=== PATIENT | male | born 1980 | race Caucasian/White ===

== ENCOUNTER 2016-12-11 21:37 | Emergency (ER) | payer BC ==
[2016-12-11] MEDS ORDERED: Hydromorphone 1 mg/ml Ampule IV ONE (22:12)
[2016-12-11] MEDS ORDERED: Phenergan 25 MG INJ IV ONE (22:12)
[2016-12-11] MEDS ORDERED: Sodium Chloride 0.9% 1000 ML 1,000 ML IV STA (22:12)
[2016-12-11] MEDS ORDERED: Phenergan 25 MG INJ ONE (22:22)
[2016-12-11] MEDS ORDERED: Hydromorphone 1 mg/ml Ampule ONE (22:23)
[2016-12-11] MEDS ORDERED: Sodium Chloride 0.9% 1000 ML 1,000 ML ONE (22:23)
--- NOTE | 2016-12-11 22:27 | ERPHSYRPT ---
- History of Present Illness Time Seen by Provider: 12/11/16 22:01 Historian: patient Exam Limitations: no limitations Patient Subjective Stated Complaint: PER PATIENT C/O ABD DISTENTION AND INTERMITENT FEVERS FOR THE LAST FEW DAYS, 30+ DAYS OUT FROM GALLBLADDER SURG FROM [facility], [place], HAS 2 ABD DRAINS STATES DECREASED OUTPUT FOR THE LAST FEW DAYS, BAG ONE SCANT DARK REDTINGED DRAINIAGE AND 350ML DRAINAGE FROM OTHER SITE SAME COLOR DRAINAGE, LARGE BAG LAST DRAINED AT 1700 Triage Nursing Assessment: PATIENT AOX3, VSS, NO FEVER NOTED AT THIS TIME, PMS INTACT ABLE TO ANSWER ALL QUESTIONS Physician History: PT C/O ACHY BURNING 7/10 ABDOMINAL PAIN FOR THE PAST 3 DAYS WITH FEVER UP TO 102 DEGREES. LAST BM WAS TODAY AND SMALL. PT STATES HE HAD A CHOLECYSTECTOMY AT [facility] [place] BY DR DALY ON 11/09/16, WAS SENT HOME AND RETURNED 1 WEEK AFTER SURGERY BECAUSE OF A DISTENDED ABDOMEN, FEVER, CHILLS AND DIAPHORESIS. AFTER 2 DAYS PT WAS TRANSFERRED TO [facility] WHERE HE STAYED FOR 1 WEEK AND THEN WAS TRANSFERRED TO [facility] IN [facility] IN, UNDER THE CARE OF DR GUERIN WHERE HE RECEIVED DRAINS AND A PEG TUBE. PT STATES HE WAS GIVEN ZOSYN AND VANCOMYCIN FOR A TOTAL OF 3 WEEKS WITH NO ANTIBIOTICS IN THE PAST WEEK. PT ALSO C/O AN INGUINAL RASH FOR THE PAST WEEK AND EARACHES FOR THE PAST 2 DAYS. Hx Tetanus, Diphtheria Vaccination/Date Given: Yes - Review of Systems Constitutional: Fever, Chills Ears, Nose, & Throat: Ear Pain Respiratory: No Dyspnea Cardiac: No Chest Pain Abdominal/Gastrointestinal: Abdominal Pain Skin: Rash Endocrine: Excessive Sweating All Other Systems: Reviewed and Negative - Past Medical History Pertinent Past Medical History: Yes Neurological History: Peripheral Neuropathy ENT History: No Pertinent History Cardiac History: No Pertinent History Respiratory History: No Pertinent History Endocrine Medical History: Hypothyroidism Musculoskeletal History: No Pertinent History GI Medical History: Diverticulitis, Gallbladder Disease History: No Pertinent History Psycho-Social History: No Pertinent History Male Reproductive Disorders: No Pertinent History - Past Surgical History Past Surgical History: Yes Neuro Surgical History: No Pertinent History Cardiac: No Pertinent History Respiratory: No Pertinent History Gastrointestinal: Bowel Surgery, Cholecystectomy, Other Genitourinary: No Pertinent History Musculoskeletal: No Pertinent History Male Surgical History: No Pertinent History - Social History Smoking Status: Former smoker Drug Use: none Patient Lives Alone: No () - Nursing Vital Signs Nursing Vital Signs: Initial Vital Signs Temperature 98.7 F Temperature Source Oral Pulse Rate 88 Respiratory Rate 16 Blood Pressure [] 122/71 Pain Intensity 6 - Physical Exam General Appearance: alert Eye Exam: PERRL/EOMI Ears, Nose, Throat Exam: TMs normal, pharynx normal, moist mucous membranes Neck Exam: normal inspection Respiratory Exam: lungs clear Cardiovascular Exam: normal heart sounds Gastrointestinal/Abdomen Exam: other (B.S. MILDLY HYPERACTIVE AND NORMOTONIC; 2 DRAINS IN RIGHT SIDE AND PEG TUBE IN LUQ. NO ERYTHEMA NOTED. MODERATE DIFFUSE ABDOMINAL TENDERNESS.) Back Exam: normal range of motion Extremity Exam: normal inspection, No pedal edema Neurologic Exam: alert, cooperative Skin Exam: rash (MILD LEFT > RIGHT FAINTLY ERYTHEMATOUS INGUINAL RASH ) SpO2 Interpretation: normal SpO2: 98 Oxygen Delivery: Room Air - Course Nursing assessment & vital signs reviewed: Yes - CT Exams Abdomen/Pelvis CT Interpretation: Tele-radiologist Report (2 PIGTAIL CATHETERS IN THE RIGHT QUADRANT, ONE IN THE MID RIGHT LOBE LIVER AND THE OTHER 4 ADJACENT TO THE RIGHT LOBE OF THE LIVER AT THE LEVEL OF THE FOSSA. MODERATELY LARGE AMOUNT OF FREE FLUID. DIVERTICULOSIS.) Ordered Tests: Active Orders 24 hr Category Date Time Status Clean Catch Urine Specimen STAT Care 12/11/16 22:12 Active IV Insertion STAT Care 12/11/16 22:12 Active ABDOMEN AND PELVIS W/0 CONTRAS [CT] Stat Exams 12/11/16 22:13 Taken AMYLASE Stat Lab 12/11/16 22:30 Completed BLOOD CULTURE Stat Lab 12/11/16 22:41 Received CBC W DIFF Stat Lab 12/11/16 22:30 Completed CMP Stat Lab 12/11/16 22:30 Completed CULTURE,URINE Stat Lab 12/11/16 22:45 Ordered LIPASE Stat Lab 12/11/16 22:30 Completed Lactic Acid Stat Lab 12/11/16 22:29 Completed MAGNESIUM Stat Lab 12/11/16 22:30 Completed UA W/ MICROSCOPIC Stat Lab 12/11/16 22:30 Completed Medication Summary Discontinued Medications Generic Name Dose Route Start Last Admin Trade Name Freq PRN Reason Stop Dose Admin Hydromorphone HCl 1 mg 12/11/16 22:12 12/11/16 22:28 Hydromorphone 1 Mg/Ml Ampule IV 12/11/16 22:13 1 mg STAT ONE Administration Hydromorphone HCl Confirm 12/11/16 22:23 Hydromorphone 1 Mg/Ml Ampule Administered 12/11/16 22:24 Dose 1 mg .ROUTE .STK-MED ONE Sodium Chloride 1,000 mls @ 999 mls/hr 12/11/16 22:12 12/11/16 22:29 Sodium Chloride 0.9% 1000 Ml IV 12/11/16 23:12 999 mls/hr .Q1H1M STA Administration Sodium Chloride Confirm 12/11/16 22:23 Sodium Chloride 0.9% 1000 Ml Administered 12/11/16 22:24 Dose 1,000 mls @ ud .ROUTE .STK-MED ONE Magnesium Sulfate/Dextrose 100 mls @ 200 mls/hr 12/11/16 23:15 12/12/16 00:39 Magnesium 1 Gm / 100 Ml D5w IV 12/11/16 23:44 200 mls/hr STAT ONE Administration Ceftriaxone Sodium/Dextrose 1 g in 50 mls @ 100 mls/hr 12/11/16 23:46 Rocephin 1 Gm-D5w 50 Ml Bag IV 12/12/16 00:15 STAT STA Magnesium Sulfate/Dextrose Confirm 12/12/16 00:34 Magnesium 1 Gm / 100 Ml D5w Administered 12/12/16 00:35 Dose 100 mls @ ud IV .STK-MED ONE Promethazine HCl 12.5 mg 12/11/16 22:12 12/11/16 22:28 Phenergan 25 Mg Inj IV 12/11/16 22:13 25 mg STAT ONE Administration Promethazine HCl Confirm 12/11/16 22:22 Phenergan 25 Mg Inj Administered 12/11/16 22:23 Dose 25 mg .ROUTE .STK-MED ONE Lab/Rad Data: Laboratory Result Diagrams 12/11/16 22:30 12/11/16 22:30 Laboratory Results 12/11/16 12/11/16 12/11/16 Range/Units 22:30 22:30 22:30 WBC 10.1 (4.0-10.5) K/mm3 RBC 3.51 L (4.1-5.6) M/mm3 Hgb 10.1 L (12.5-18.0) gm/dl Hct 31.7 L (42-50) % MCV 90.3 (78-100) fl MCH 28.7 (26-32) pg MCHC 31.9 L (32-36) g/dl RDW 14.1 H (11.5-14.0) % Plt Count 345 (150-450) K/mm3 MPV 9.0 (6-9.5) fl Gran % 81.3 H (36.0-66.0) % Lymphocytes % 8.0 L (24.0-44.0) % Monocytes % 7.2 (0.0-12.0) % Eosinophils % 3.3 (0.00-5.0) % Basophils % 0.2 (0.0-0.4) % Basophils # 0.02 (0-0.4) Sodium 137 (136-145) mEq/L Potassium 3.5 (3.5-5.1) mEq/L Chloride 99 (98-107) mEq/L Carbon Dioxide 26.9 (21-32) mEq/L Anion Gap 14.5 (5-15) MEQ/L BUN 10 (9-20) mg/dL Creatinine 0.87 (0.55-1.30) mg/dl Estimated GFR > 60 ML/MIN Glucose 104 (70-110) MG/DL Lactic Acid (0.4-2.0) Calcium 8.6 (8.5-10.1) mg/dL Magnesium 1.7 L (1.8-2.4) mg/dL Total Bilirubin 1.00 (0.2-1.0) mg/dL AST 29 (15-37) U/L ALT 68 (12-78) U/L Alkaline Phosphatase 118 H (46-116) U/L Serum Total Protein 7.3 (6.4-8.2) gm/dL Albumin 2.7 L (3.4-5.0) g/dL Amylase 141 H (25-115) U/L Lipase 667 H (73-393) U/L Ur Collection Type VOID Urine Color YELLOW (YELLOW) Urine Appearance CLEAR (CLEAR) Urine pH 6.0 (5-6) Ur Specific [place] 1.015 (1.005-1.025) Urine Protein TRACE (Negative) Urine Ketones NEGATIVE (NEGATIVE) Urine Blood 5-10 (0-5) Ayo/ul Urine Nitrite NEGATIVE (NEGATIVE) Urine Bilirubin NEGATIVE (NEGATIVE) Urine Urobilinogen NORMAL (0-1) mg/dL Ur Leukocyte Esterase NEGATIVE (NEGATIVE) Urine Microscopic RBC 2-5 (0-2) /HPF Urine Microscopic WBC 5-10 (0-5) /HPF Ur Epithelial Cells FEW (FEW) /HPF Urine Bacteria MODERATE (NEGATIVE) /HPF Urine Mucus MODERATE (NEGATIVE) /HPF Urine Glucose NEGATIVE (NEGATIVE) mg/dL Specimen Received 12/11/16 2230 12/11/16 Range/Units 22:29 WBC (4.0-10.5) K/mm3 RBC (4.1-5.6) M/mm3 Hgb (12.5-18.0) gm/dl Hct (42-50) % MCV (78-100) fl MCH (26-32) pg MCHC (32-36) g/dl RDW (11.5-14.0) % Plt Count (150-450) K/mm3 MPV (6-9.5) fl Gran % (36.0-66.0) % Lymphocytes % (24.0-44.0) % Monocytes % (0.0-12.0) % Eosinophils % (0.00-5.0) % Basophils % (0.0-0.4) % Basophils # (0-0.4) Sodium (136-145) mEq/L Potassium (3.5-5.1) mEq/L Chloride (98-107) mEq/L Carbon Dioxide (21-32) mEq/L Anion Gap (5-15) MEQ/L BUN (9-20) mg/dL Creatinine (0.55-1.30) mg/dl Estimated GFR ML/MIN Glucose (70-110) MG/DL Lactic Acid 0.7 (0.4-2.0) Calcium (8.5-10.1) mg/dL Magnesium (1.8-2.4) mg/dL Total Bilirubin (0.2-1.0) mg/dL AST (15-37) U/L ALT (12-78) U/L Alkaline Phosphatase (46-116) U/L Serum Total Protein (6.4-8.2) gm/dL Albumin (3.4-5.0) g/dL Amylase (25-115) U/L Lipase (73-393) U/L Ur Collection Type Urine Color (YELLOW) Urine Appearance (CLEAR) Urine pH (5-6) Ur Specific [place] (1.005-1.025) Urine Protein (Negative) Urine Ketones (NEGATIVE) Urine Blood (0-5) Ayo/ul Urine Nitrite (NEGATIVE) Urine Bilirubin (NEGATIVE) Urine Urobilinogen (0-1) mg/dL Ur Leukocyte Esterase (NEGATIVE) Urine Microscopic RBC (0-2) /HPF Urine Microscopic WBC (0-5) /HPF Ur Epithelial Cells (FEW) /HPF Urine Bacteria (NEGATIVE) /HPF Urine Mucus (NEGATIVE) /HPF Urine Glucose (NEGATIVE) mg/dL Specimen Received - Progress Discussed with Dr.: Other (SPOKE WITH DR GUERIN([id number]) WHO ACCEPTED PT FOR TRANSFER TO [facility] A DIRECT ADMISSSION.) - Departure Time of Disposition: 01:07 Departure Disposition: Transfer ([facility]) Clinical Impression: ABDOMINAL PAIN, UTI, MILD HYPOKALEMIA, PANCREATITIS, PN, HYPOTHYROIDISM Condition: Stable Critical Care Time: No Referrals: LETA FIGUEROA NP [Primary Care Provider] -
[2016-12-11 22:44] LABS: BASOPHIL % 0.2 % (0.0-0.4); Eosinophil % 3.3 % (0.00-5.0); Granulocytes % 81.3 % (36.0-66.0); Mean Cell Volume 90.3 fl (78-100); Monocytes % 7.2 % (0.0-12.0); Platelet Count 345 K/mm3 (150-450); Red Blood Count 3.51 M/mm3 (4.1-5.6); Red Cell Distribution Width 14.1 % (11.5-14.0); White Blood Count 10.1 K/mm3 (4.0-10.5)
[2016-12-11 22:48] LABS: Mean Corpuscular Hemoglobin 28.7 pg (26-32)
[2016-12-11 23:05] LABS: ALBUMIN 2.7 g/dL (3.4-5.0); ALKALINE PHOSPHATASE 118 U/L (46-116); ANION GAP 14.5 MEQ/L (5-15); BLOOD UREA NITROGEN 10 mg/dL (9-20); CHLORIDE 99 mEq/L (98-107); Carbon Dioxide 26.9 mEq/L (21-32); Glucose 104 MG/DL (70-110); LIPASE 667 U/L (73-393); MAGNESIUM 1.7 mg/dL (1.8-2.4); Potassium 3.5 mEq/L (3.5-5.1); SGOT/AST 29 U/L (15-37); SGPT/ALT 68 U/L (12-78); SODIUM 137 mEq/L (136-145); Total Protein 7.3 gm/dL (6.4-8.2)
[2016-12-11] MEDS ORDERED: Magnesium 1 Gm / 100 Ml D5W*** 100 ML IV ONE (23:15)
[2016-12-11 23:18] LABS: Collection Type VOID
[2016-12-11 23:19] LABS: Bacteria MODERATE /HPF (NEGATIVE); Bilirubin NEGATIVE (NEGATIVE); COMPLETE URINE MICROSCOPIC? YES; Epithelial Cells FEW /HPF (FEW); Glucose NEGATIVE (NEGATIVE); Leukocyte Esterase NEGATIVE (NEGATIVE); Mucus MODERATE /HPF (NEGATIVE)
[2016-12-11] MEDS ORDERED: ROCEPHIN 1 Gm-D5w 50 ml Bag** 1 G/50 ML IVPB IV STA (23:46)
[2016-12-12] MEDS ORDERED: Magnesium 1 Gm / 100 Ml D5W*** 100 ML IV ONE (00:34)
[2016-12-12] MEDS ORDERED: ROCEPHIN 1 Gm-D5w 50 ml Bag** 1 G/50 ML IVPB IV ONE (02:40)
[2016-12-12] MEDS ORDERED: Hydromorphone 1 mg/ml Ampule IV ONE (02:44)
[2016-12-12] MEDS ORDERED: Hydromorphone 1 mg/ml Ampule ONE (02:49)
[2016-12-12 06:58] VITALS: BP 105/61; PULSE 74; O2SAT 97
--- NOTE | 2016-12-12 08:08 | XRAY ---
Indication: Abdominal pain, distention, and nausea. Patient reports drainage tubing present due to complications from gallbladder surgery. Multiple contiguous axial images obtained through the abdomen and pelvis without contrast as ordered. Comparison: None Lung bases demonstrates bibasilar dependent atelectasis, right greater than left. Heart is not enlarged. There has been cholecystectomy with fluid collection in the gallbladder fossa measuring at least 3.0 x 7.0 cm in axial dimension. Small perisplenic fluid. Larger free fluid seen along the colic gutters bilaterally and in the pelvis. Right-sided pigtail percutaneous drainage catheter just lateral to the liver. There is also a second percutaneous biliary drainage catheter exiting right mid axillary line with a few tiny air bubbles adjacent to the pigtail. PEG tube also present with the balloon tip in the gastric lumen. Noncontrasted bowel loops appear nonobstructed. Scattered colonic diverticulosis throughout. Remaining liver, pancreas, spleen, degenerative glands, kidneys, ureters, bladder, and aorta appear unremarkable for noncontrast exam. Osseous structures intact. Impression: 1. Abdominal and pelvic free fluid. 2. 2 right upper quadrant percutaneous pigtail drainage catheters and PEG tube in situ. 3. Diverticulosis. Comment: Preliminary interpretation was made by [facility]. No discrepancy. CTDI 21.24
== END 2016-12-12 07:20 | disposition short-term general hospital (02) ==
LOC: ED 21:37
DX: R10.9 Unspecified abdominal pain (principal); N39.0 Urinary tract infection, site not specified; E87.6 Hypokalemia; K85.90 Acute pancreatitis without necrosis or infection, unspecified; J18.9 Pneumonia, unspecified organism; E03.9 Hypothyroidism, unspecified; R50.9 Fever, unspecified; Z98.890 Other specified postprocedural states
CPT/HCPCS: 36000; 36415; 74176; 80053; 81000; 82150; 83605; 83690; 83735; 85025; 87040; 87086; 96360; 96361; 96365; 96367; 96374; 96375; 99285; J0696; J1170; J2550; J3475

== ENCOUNTER 2017-02-15 18:11 | Emergency (ER) | payer BC, MEDICARE ==
[2017-02-15] MEDS ORDERED: Hydromorphone 1 mg/ml Ampule IV ONE ×2 (18:31→19:20)
--- NOTE | 2017-02-15 18:39 | ERPHSYRPT ---
- History of Present Illness Source: patient, family (father) Timing/Duration: day(s) (few) Severity: severe Hx Tetanus, Diphtheria Vaccination/Date Given: Yes <CAITLIN RUDOLPH - Last Filed: 02/15/17 18:33> <CAITLIN PAL - Last Filed: 02/15/17 23:26> - History of Present Illness Time Seen by Provider: 02/15/17 18:14 Physician History: CC: abd pain, fever Hx: 37 y/o healthy male patient had cholecystectomy at [facility] in October. He had subsequent bile duct and sepsis problems. Has been admitted at [facility] several times for drains and further procedures. He reports worsened abdominal pain, fevers, chills for the past few days. Spoke to surgeon and was told to go to ER to get labs and evaluation. He has some headache, abd pain, drang from around the drains, trouble starting urinary stream. Pain is moderately severe. (CAITLIN RUDOLPH) Allergies/Adverse Reactions: No Known Drug Allergies Allergy (Unverified 02/15/17 18:35) Home Medications: Dronabinol 5 mg PO UD 02/15/17 [History] Ferrous Sulfate 325 mg [Feosol 325 mg] 325 mg PO UD 02/15/17 [History] Levothyroxine Sodium [Synthroid] 175 mcg PO DAILY 02/15/17 [History] Lidocaine HCl 5% Patch [Lidoderm Patch 5%] 1 patch TOP UD 02/15/17 [ History] Ondansetron [Zofran Odt] 4 mg PO UD 02/15/17 [History] Oxycodone HCl 5 mg PO UD 02/15/17 [History] Promethazine HCl 12.5 mg PO UD 02/15/17 [History] - Review of Systems Constitutional: Fever, Chills, Fatigue, Malaise, Weakness Eyes: No Symptoms Ears, Nose, & Throat: No Symptoms Respiratory: No Cough, No Dyspnea Cardiac: No Chest Pain Abdominal/Gastrointestinal: Abdominal Pain, Nausea, No Vomiting, No Diarrhea Genitourinary Symptoms: Hesitancy, No Dysuria, No Testicle Pain Musculoskeletal: No Back Pain Skin: No Rash Neurological: Headache, No Focal Weakness, No Parasthesia All Other Systems: Reviewed and Negative <CAITLIN RUDOLPH - Last Filed: 02/15/17 18:33> - Past Medical History Pertinent Past Medical History: Yes Neurological History: Peripheral Neuropathy ENT History: No Pertinent History Cardiac History: No Pertinent History Respiratory History: No Pertinent History Endocrine Medical History: Hypothyroidism Musculoskeletal History: No Pertinent History GI Medical History: Diverticulitis, Gallbladder Disease History: No Pertinent History Psycho-Social History: No Pertinent History Male Reproductive Disorders: No Pertinent History Other Medical History: Reflex Sympathetic Dystrophy - Past Surgical History Past Surgical History: Yes Neuro Surgical History: No Pertinent History Cardiac: No Pertinent History Respiratory: No Pertinent History Gastrointestinal: Bowel Surgery, Cholecystectomy, Other Genitourinary: No Pertinent History Musculoskeletal: No Pertinent History Male Surgical History: No Pertinent History Other Surgical History: post cholecystectomy complications - Social History Smoking Status: Former smoker Drug Use: none Patient Lives Alone: No () <CAITLIN RUDOLPH Last Filed: 02/15/17 18:33> - Physical Exam General Appearance: alert Eye Exam: PERRL/EOMI, No scleral icterus Ears, Nose, Throat Exam: normal ENT inspection, moist mucous membranes Neck Exam: normal inspection, non-tender, supple Respiratory Exam: normal breath sounds, lungs clear Cardiovascular Exam: regular rate/rhythm Gastrointestinal/Abdomen Exam: soft, other (diffuse discomfort, no mass, suprapubic tenderness, two drains with mild yellow drng around tubes) Male Genitalia Exam: normal genitalia, No testicular tenderness Back Exam: normal inspection Extremity Exam: normal inspection, normal range of motion Neurologic Exam: alert, oriented x 3, cooperative, sensation nml, No motor deficits Skin Exam: warm, dry, No rash <CAITLIN RUDOLPH - Last Filed: 02/15/17 18:33> - Nursing Vital Signs Nursing Vital Signs: Initial Vital Signs Temperature 98.3 F 02/15/17 18:34 Pulse Rate 94 H 02/15/17 18:34 Respiratory Rate 18 02/15/17 18:34 Blood Pressure 125/86 02/15/17 18:34 O2 Sat by Pulse Oximetry 100 02/15/17 18:34 Pain Scale Pain Intensity 8 - Course Nursing assessment & vital signs reviewed: Yes <CAITLIN RUDOLPH Last Filed: 02/15/17 18:33> - CT Exams Abdomen/Pelvis CT Interpretation: Tele-radiologist Report (COMPARED TO 12/11/16 PREVIOUS DRAINAGE CATHETER EXCHANGE FOR 3 NEW PERCUTANEOUS BILARY CATHETERS TERMINATING IN JEJUNUM MID ABDOMEN. PREVIOUS FREE FLUID HAS DRAMATICALL IMPROVED W/SMALL 1.3 X1.8 CM RESIDUAL FLUID IN GB FOSSA. FOCAL FLUID DISTENDED SMALL BOWEL LOOP W /WALL THICKENING LEF MID ABDOMINAL PROBABLE ENTERITIS. STABLE DVERTICULOSIS) <CAITLIN PAL - Last Filed: 02/15/17 23:26> Ordered Tests: Active Orders 24 hr Category Date Time Status Clean Catch Urine Specimen STAT Care 02/15/17 18:31 Active IV Insertion STAT Care 02/15/17 18:31 Active NPO (ED) STAT Care 02/15/17 18:31 Active ABDOMEN AND PELVIS W CONTRAST [CT] Stat Exams 02/15/17 18:32 Taken BLOOD CULTURE Stat Lab 02/15/17 19:30 Received BMP Stat Lab 02/15/17 18:55 Completed CBC W DIFF Stat Lab 02/15/17 18:55 Completed CULTURE,URINE Stat Lab 02/15/17 18:32 Ordered Hepatic Function Panel Stat Lab 02/15/17 18:55 Completed LIPASE Stat Lab 02/15/17 18:55 Completed Lactic Acid Stat Lab 02/15/17 Completed PROTIME WITH INR Stat Lab 02/15/17 19:09 Completed UA W/RFX UR CULTURE Stat Lab 02/15/17 18:31 Ordered Medication Summary Generic Name Dose Route Start Last Admin Trade Name Freq PRN Reason Stop Dose Admin Sodium Chloride 1,000 mls @ 250 mls/hr 02/15/17 18:45 02/15/17 19:38 Sodium Chloride 0.9% 1000 Ml IV 03/17/17 18:44 999 mls/hr .Q4H NICKIE Infusion Discontinued Medications Generic Name Dose Route Start Last Admin Trade Name Freq PRN Reason Stop Dose Admin Hydromorphone HCl 1 mg 02/15/17 18:31 02/15/17 18:51 Hydromorphone 1 Mg/Ml Ampule IV 02/15/17 18:32 1 mg STAT ONE Administration Hydromorphone HCl Confirm 02/15/17 18:49 Hydromorphone 1 Mg/Ml Ampule Administered 02/15/17 18:50 Dose 1 mg .ROUTE .STK-MED ONE Hydromorphone HCl 1 mg 02/15/17 19:20 02/15/17 19:33 Hydromorphone 1 Mg/Ml Ampule IV 02/15/17 19:21 1 mg STAT ONE Administration Hydromorphone HCl Confirm 02/15/17 19:29 Hydromorphone 1 Mg/Ml Ampule Administered 02/15/17 19:30 Dose 1 mg .ROUTE .STK-MED ONE Sodium Chloride 1,000 mls @ 999 mls/hr 02/15/17 19:20 02/15/17 19:38 Sodium Chloride 0.9% 1000 Ml IV 02/15/17 20:20 Not Given .Q1H1M STA Sodium Chloride 1,000 mls @ 999 mls/hr 02/15/17 21:14 02/15/17 21:38 Sodium Chloride 0.9% 1000 Ml IV 02/15/17 22:14 999 mls/hr .Q1H1M STA Administration Lab/Rad Data: Laboratory Result Diagrams 02/15/17 18:55 02/15/17 18:55 Laboratory Results 02/15/17 02/15/17 02/15/17 Range/Units Unknown 19:09 18:55 WBC (4.0-10.5) K/mm3 RBC (4.1-5.6) M/mm3 Hgb (12.5-18.0) gm/dl Hct (42-50) % MCV (78-100) fl MCH (26-32) pg MCHC (32-36) g/dl RDW (11.5-14.0) % Plt Count (150-450) K/mm3 MPV (6-9.5) fl Gran % (36.0-66.0) % Lymphocytes % (24.0-44.0) % Monocytes % (0.0-12.0) % Eosinophils % (0.00-5.0) % Basophils % (0.0-0.4) % Basophils # (0-0.4) INR 1.19 (0.8-3.0) Sodium 137 (136-145) mEq/L Potassium 3.6 (3.5-5.1) mEq/L Chloride 102 (98-107) mEq/L Carbon Dioxide 26.1 (21-32) mEq/L Anion Gap 12.3 (5-15) MEQ/L BUN 9 (9-20) mg/dL Creatinine 0.85 (0.55-1.30) mg/dl Estimated GFR > 60 ML/MIN Glucose 92 (70-110) MG/DL Lactic Acid 1.3 (0.4-2.0) Calcium 9.4 (8.5-10.1) mg/dL Total Bilirubin 0.20 (0.2-1.0) mg/dL Direct Bilirubin 0.09 (0.0-0.2) MG/DL AST 12 L (15-37) U/L ALT 19 (12-78) U/L Alkaline Phosphatase 106 (46-116) U/L Serum Total Protein 7.8 (6.4-8.2) gm/dL Albumin 3.4 (3.4-5.0) g/dL Lipase 288 (73-393) U/L 02/15/17 Range/Units 18:55 WBC 8.2 (4.0-10.5) K/mm3 RBC 4.20 (4.1-5.6) M/mm3 Hgb 10.6 L (12.5-18.0) gm/dl Hct 34.8 L (42-50) % MCV 82.9 (78-100) fl MCH 25.2 L (26-32) pg MCHC 30.5 L (32-36) g/dl RDW 16.4 H (11.5-14.0) % Plt Count 476 H (150-450) K/mm3 MPV 8.6 (6-9.5) fl Gran % 65.8 (36.0-66.0) % Lymphocytes % 18.8 L (24.0-44.0) % Monocytes % 9.4 (0.0-12.0) % Eosinophils % 5.8 H (0.00-5.0) % Basophils % 0.2 (0.0-0.4) % Basophils # 0.02 (0-0.4) INR (0.8-3.0) Sodium (136-145) mEq/L Potassium (3.5-5.1) mEq/L Chloride (98-107) mEq/L Carbon Dioxide (21-32) mEq/L Anion Gap (5-15) MEQ/L BUN (9-20) mg/dL Creatinine (0.55-1.30) mg/dl Estimated GFR ML/MIN Glucose (70-110) MG/DL Lactic Acid (0.4-2.0) Calcium (8.5-10.1) mg/dL Total Bilirubin (0.2-1.0) mg/dL Direct Bilirubin (0.0-0.2) MG/DL AST (15-37) U/L ALT (12-78) U/L Alkaline Phosphatase (46-116) U/L Serum Total Protein (6.4-8.2) gm/dL Albumin (3.4-5.0) g/dL Lipase (73-393) U/L <CAITLIN RUDOLPH - Last Filed: 02/15/17 18:33> - Progress Counseled pt/family regarding: lab results, diagnosis, need for follow-up, rad results <CATILIN PAL - Last Filed: 02/15/17 23:26> - Progress Progress Note: 02/15/17 18:38 Meds, IVF, labs, CT ordered to rule out abscess and to assess bile duct drng tubes. Will give report to Dr Pal for further care and disposition. (CAITLIN RUDOLPH) PATIENT HYDRATED WITH NORMAL SALINE 2 LITER BOLUS OVER 2 HOUR, FOLLOWED BY SALINE INFUSION 250ML/HR, DILAUDID 1MG IV X 2 02/15/17 19:29 02/15/17 23:13- CONSULTED PATIENT'S SURGEON [facility] PARSONS AT 2251 AND AFTER REVIEW OF LAB TESTS, VITAL SIGNS AND ABDOMINAL PELVIC CT SCAN , WILL HAVE PATIENT FOLLOWUP THIS WEEK IN 2 DAYS FOR CLINIC VISIT (CAITLIN PAL) <CAITLIN RUDOLPH - Last Filed: 02/15/17 18:33> - Departure Time of Disposition: 23:30 Departure Disposition: Home Critical Care Time: No <CAITLIN PAL - Last Filed: 02/15/17 23:26> - Departure Clinical Impression: DEHYDRATION, CHRONIC ABDOMINAL PAIN Condition: Stable Referrals: LETA FIGUEROA, [employer] [Primary Care Provider] - Additional Instructions: FOLLOWUP WITH YOUR SURGEON DR PARSONS FOR SCHEDULED APPOINTMENT AND CONCERNS OF INFUSION THERAPY WEEKLY. CONTINUE ALL CURRENT MEDICATIONS.
[2017-02-15] MEDS ORDERED: Sodium Chloride 0.9% 1000 ML 1,000 ML IV SCH (18:45)
[2017-02-15] MEDS ORDERED: Sodium Chloride 0.9% 1000 ML 1,000 ML ONE ×2 (18:49→21:37)
[2017-02-15] MEDS ORDERED: Hydromorphone 1 mg/ml Ampule ONE ×2 (18:49→19:29)
[2017-02-15 19:11] LABS: BASOPHIL % 0.2 % (0.0-0.4); Eosinophil % 5.8 % (0.00-5.0); Granulocytes % 65.8 % (36.0-66.0); Lymphocytes % 18.8 % (24.0-44.0); Mean Cell Volume 82.9 fl (78-100); Mean Corpuscular Hemoglobin 25.2 pg (26-32); Mean Platelet Volume 8.6 fl (6-9.5); Monocytes % 9.4 % (0.0-12.0); Platelet Count 476 K/mm3 (150-450); Red Cell Distribution Width 16.4 % (11.5-14.0); White Blood Count 8.2 K/mm3 (4.0-10.5)
[2017-02-15] MEDS ORDERED: Sodium Chloride 0.9% 1000 ML 1,000 ML IV STA ×2 (19:20→21:14)
[2017-02-15 19:21] LABS: INR 1.19 (0.8-3.0); PROTIME 13.5 SECONDS (8.83-12.87)
[2017-02-15 19:34] LABS: ALBUMIN 3.4 g/dL (3.4-5.0); ALKALINE PHOSPHATASE 106 U/L (46-116); ANION GAP 12.3 MEQ/L (5-15); BLOOD UREA NITROGEN 9 mg/dL (9-20); CHLORIDE 102 mEq/L (98-107); Carbon Dioxide 26.1 mEq/L (21-32); Direct Bilirubin 0.09 MG/DL (0.0-0.2); Glucose 92 MG/DL (70-110); LIPASE 288 U/L (73-393); Potassium 3.6 mEq/L (3.5-5.1); SGOT/AST 12 U/L (15-37); SGPT/ALT 19 U/L (12-78); SODIUM 137 mEq/L (136-145); Total Protein 7.8 gm/dL (6.4-8.2)
[2017-02-15 19:44] VITALS: O2SAT 97
[2017-02-15 22:54] VITALS: BP 116/66; PULSE 76
--- NOTE | 2017-02-16 08:49 | XRAY ---
Indication: Abdominal pain, fever, chills, and urinary hesitancy. Multiple contiguous axial images obtained through the abdomen and pelvis using 80 cc Isovue 370 contrast only. Comparison: December 11, 2016. Lung bases again demonstrates minimal bibasilar dependent atelectasis, less than before. No consolidation or effusion. Heart is not enlarged. Previous percutaneous drainage tubes have all been replaced. There are 3 new percutaneous biliary drainage catheters with the distal tips terminating midline in what appears to be a jejunal bowel loop. There is mild intrahepatic biliary prominence. The previous abdominal/pelvic free fluid has dramatically cleared with tiny 1.3 x 1.8 cm residual in the gallbladder fossa. No free air. Right lobe of the liver demonstrates 8.2 x 8.2 cm wedge-shaped focus of delayed enhancement in the region of the new drainage catheters not seen on the previous noncontrast exam that may or may not be related to catheter placement. Finding could also represent a giant hepatic hemangioma. Again cholecystectomy clips. Noncontrasted stomach and bowel loops appear nonobstructed with again sigmoid diverticulosis. PEG tube has been removed in the interim. There is now mild fluid distended small bowel loops with wall thickening/enhancement in the left mid abdomen favoring enteritis. Normal appendix. Stable 2.5 cm left lower pole renal cyst. Remaining liver, pancreas, spleen, adrenal glands, kidneys, ureters, and bladder appear unremarkable. No AAA or pathologic retroperitoneal lymphadenopathy. Osseous structures intact. Stable small fatty left inguinal hernia. Impression: 1. 3 new percutaneous biliary change catheters as detailed. 2. Clearing of the previous abdomen/pelvic free fluid with tiny residual in the gallbladder fossa. 3. Left abdomen fluid distended small bowel loop with wall thickening/enhancement favoring enteritis. 4. Large wedge-shaped focus of delayed enhancement in the right lobe of the liver that may or may not be related to catheter placement or may represent giant hepatic hemangioma. Nuclear medicine tagged RBC exam could confirm hemangioma. 5. Stable sigmoid diverticulosis, left renal cyst, and fatty left inguinal hernia. CT DI 12.24
== END 2017-02-15 23:46 | disposition home or self-care (01) ==
LOC: ED 18:11
DX: E86.0 Dehydration (principal); R10.9 Unspecified abdominal pain; R11.0 Nausea; R51 Headache
CPT/HCPCS: 36000; 36415; 74177; 80048; 80076; 83605; 83690; 85025; 85610; 87040; 96360; 96361; 96374; 96376; 99284; J1170